=== PATIENT | female | born 1975 | race African-American/Black ===

== ENCOUNTER 2024-12-27 20:45 | Emergency (ER) | payer OTHER, SELFPAY ==
[2024-12-27 20:50] VITALS: BP 166/94
[2024-12-27 21:41] VITALS: BMI 28.6
[2024-12-27 21:43] VITALS: BP 159/94
[2024-12-27 22:00] VITALS: BP 162/88
[2024-12-27 22:12] LABS: Hematocrit 29.2 % (37.0-47.0); Hemoglobin 9.4 g/dL (12.0-16.0); Mean Corp Hgb Conc. 32.2 g/dL (33.0-37.0); Mean Corpuscular Volume 81.8 fL (81.0-99.0); Nucleated Red Blood Cells % 0 %; Platelet Count 387 10^3/uL (130-400); Red Cell Dist. Width 19.2 % (11.5-14.5); Urine Character Slightly Cloudy (Clear)
--- NOTE | 2024-12-27 22:23 | ED.GENMED ---
History of Present Illness
<Kev Moreira MD, Resident - Last Filed: 12/28/24 01:11>
General
Chief Complaint: Abnormal Lab Value
Source: patient
Time Seen by Provider: 12/27/24 22:09
History of Present Illness
History of Present Illness:
Mayte is a 49-year-old female with hypertension, anemia, and right ovarian cysts who presents with lower abdominal pain and 2 weeks of vaginal bleeding, now having nausea and dizziness. She went to the urgent care for workup and was sent here due
to low hemoglobin of 9.9. She states that she is perimenopausal and has been having ongoing on and off prolonged periods of vaginal bleeding for the past 1.5 years. She states that this episode is the worst, and that she feeling dizzy,
lightheaded, lethargic. She is bleeding through 1-2 pads per hour. She also reports having the shakes today as well as nausea. Of note, she stopped taking her norethindrone 3 times daily on Thursday as she thought she was having her period. She
follows with [facility] at [facility]. Today, she denies fevers, chills, vomiting, changes in diet, or any trauma to the abdomen or pelvis.
Review of Systems
<Kev Moreira MD, Resident - Last Filed: 12/28/24 01:11>
Review of Systems
Allergies reviewed?: No
All Other Systems: ROS reviewed and negative except as documented in HPI and ROS
ABD/GI: Reports abdominal pain, nausea and pain
: Reports bleeding
Neurological: Reports dizzy and weakness
Phy Exam
<Kev Moreira MD, Resident - Last Filed: 12/28/24 01:11>
General Physical Exam
General Presentation: well appearing and mild distress (Clutching lower abdomen in pain)
General Skin: warm and dry
General Habitus: normal
General Mental: alert
Cardiovascular Exam
Cardiovascular Exam: regular rate/rhythm and no edema
Pulmonary Exam
Pulmonary Exam: lungs clear and no respiratory distress
Gastrointestinal Exam
Gastrointestinal Exam: normal bowel sounds, soft, distended and tender (Mostly in the lower abdomen and right lower quadrant)
Neurological Exam
Neurological Exam: alert and oriented x3
Skin Exam
Skin Exam: normal color and warm/dry
Course
<Uswa MD Harish, Resident - Last Filed: 12/28/24 01:11>
Orders/Labs/Results
Orders:
Orders
12/27/24 22:00
Complete Blood Count/With Diff Urgent
Comprehensive Metabolic Panel Urgent
HCG, Serum Qualitative Screen Urgent
Comment: ADD ON
Urinalysis Reflex To Culture Urgent
Date Specimen was Collected: 12/27/24
Time Specimen was Collected: 21:59
Urine Microscopic Reflex Cult Urgent
12/27/24 22:54
US Pelvis Only (non-obstetric) Urgent
Comment:
Reason For Exam: AUB
12/27/24 22:56
Add On- LAB Urgent
Tests Added?: Qualitative HCG
12/27/24 23:39
Naproxen [Naprosyn] 500 mg PO NOW STA
12/27/24 23:40
Acetaminophen [Tylenol] 500 mg PO NOW STA
12/28/24 00:50
Tranexamic Acid [Cyklokapron] 1,300 mg PO NOW STA
12/28/24 00:57
Progesterone [Progesterone in Oil] 10 mg IM NOW STA
Abnormal Lab Results
12/27/24
22:00
RBC 3.57 L 10^6/uL
(4.20-5.40)
Hgb 9.4 L g/dL
(12.0-16.0)
Hct 29.2 L %
(37.0-47.0)
MCH 26.3 L pg
(27.0-31.0)
MCHC 32.2 L g/dL
(33.0-37.0)
RDW 19.2 H %
(11.5-14.5)
Absolute Neuts (auto) 7.1 H 10^3/uL
(1.4-6.5)
Absolute Monos (auto) 0.8 H 10^3/uL
(0.1-0.6)
Lymphocytes % 19.1 L %
(20.5-51.1)
Sodium 134 L mmol/L
(135-145)
Glucose 105 H mg/dl
(70-99)
Ur Occult Blood Reflex 4+ A
(Negative)
Urine RBC 80-90 A /HPF
(0-2)
Urine Bacteria (Reflex) Few A
(Negative)
Urine Albumin (Reflex) 2+ A
(Neg - Trace)
12/27/24 22:00
12/27/24 22:00
Vital Signs
Initial and Last Documented VS:
Initial Vital Signs
Temp Pulse Resp BP Pulse Ox
98.9 F 90 18 166/94 97
12/27/24 20:50 12/27/24 20:50 12/27/24 20:50 12/27/24 20:50 12/27/24 20:50
Last Documented Vital Signs
Temp Pulse Resp BP Pulse Ox
98.9 F 90 18 133/89 100
12/27/24 20:50 12/27/24 20:50 12/27/24 20:50 12/27/24 23:00 12/27/24 23:45
Jaidenlt;Isaac Aguilar, - Last Filed: 12/27/24 23:03>
Orders/Labs/Results
Orders:
Orders
12/27/24 22:00
Complete Blood Count/With Diff Urgent
Comprehensive Metabolic Panel Urgent
HCG, Serum Qualitative Screen Urgent
Comment: ADD ON
Urinalysis Reflex To Culture Urgent
Date Specimen was Collected: 12/27/24
Time Specimen was Collected: 21:59
Urine Microscopic Reflex Cult Urgent
12/27/24 22:54
US Pelvis Only (non-obstetric) Urgent
Comment:
Reason For Exam: AUB
12/27/24 22:56
Add On- LAB Urgent
Tests Added?: Qualitative HCG
12/27/24 23:39
Naproxen [Naprosyn] 500 mg PO NOW STA
12/27/24 23:40
Acetaminophen [Tylenol] 500 mg PO NOW STA
12/28/24 00:50
Tranexamic Acid [Cyklokapron] 1,300 mg PO NOW STA
12/28/24 00:57
Progesterone [Progesterone in Oil] 10 mg IM NOW STA
Abnormal Lab Results
12/27/24
22:00
RBC 3.57 L 10^6/uL
(4.20-5.40)
Hgb 9.4 L g/dL
(12.0-16.0)
Hct 29.2 L %
(37.0-47.0)
MCH 26.3 L pg
(27.0-31.0)
MCHC 32.2 L g/dL
(33.0-37.0)
RDW 19.2 H %
(11.5-14.5)
Absolute Neuts (auto) 7.1 H 10^3/uL
(1.4-6.5)
Absolute Monos (auto) 0.8 H 10^3/uL
(0.1-0.6)
Lymphocytes % 19.1 L %
(20.5-51.1)
Sodium 134 L mmol/L
(135-145)
Glucose 105 H mg/dl
(70-99)
Ur Occult Blood Reflex 4+ A
(Negative)
Urine RBC 80-90 A /HPF
(0-2)
Urine Bacteria (Reflex) Few A
(Negative)
Urine Albumin (Reflex) 2+ A
(Neg - Trace)
12/27/24 22:00
12/27/24 22:00
Vital Signs
Initial and Last Documented VS:
Initial Vital Signs
Temp Pulse Resp BP Pulse Ox
98.9 F 90 18 166/94 97
12/27/24 20:50 12/27/24 20:50 12/27/24 20:50 12/27/24 20:50 12/27/24 20:50
Last Documented Vital Signs
Temp Pulse Resp BP Pulse Ox
98.9 F 90 18 133/89 100
12/27/24 20:50 12/27/24 20:50 12/27/24 20:50 12/27/24 23:00 12/27/24 23:45
<Kev Moreira MD, Resident - Last Filed: 12/28/24 01:11>
MDM/Problems Addressed
Differential Diagnosis Includes:
Endometrial polyp
Perimenopausal bleeding
Progesterone withdrawal bleeding
Ovarian torsion
MDM/Problems Addressed:
Mayte is a 49-year-old female with hypertension, anemia, and right ovarian cysts who presents with lower abdominal pain and 2 weeks of vaginal bleeding, now having nausea and dizziness.
#Abnormal vaginal bleeding
#Lower abdominal pain
#Nausea and dizziness
She was sent here with hemoglobin 9.9 from urgent care. In the ED hemoglobin is 9.4. She is not having any nausea nor dizziness currently, however is having lower abdominal cramping and pain.
- Electrolytes within normal range
- UA pertinent for 80-90 urine RBC
- Follow-up transvaginal ultrasound
--Spoke w/ [facility] at [facility] to see if one-time dose of progesterone is ok, patient had endometrial biopsy in September 2024 that was unremarkable
--Okay for one-time dose of IM progesterone 0.2mg in ED & TXA 1300mg once now
- Home with TXA 1300 mg TID x 5 days
- Follow-up [facility]
<Kev Moreira MD, Resident - Last Filed: 12/28/24 01:11>
*Pulse Oximetry
SaO2: 100
Oxygen Mode of Delivery: Room air
Patient hypoxic: no
*Critical Care Note
Total Time (30-74mins, 75-104mins- exclusive of procedures): Not Applicable
<Kev Moreira MD, Resident - Last Filed: 12/28/24 01:11>
Update Note
Update Note:
I spoke to resident via [facility] resident hotline to inquire about her previous medical records and risk for endometrial cancer. Resident notified me that Mayet had an endometrial biopsy in September 2024 that showed 1 polyp but otherwise was
unremarkable. She also confirmed that Mayte has been on progesterone OCP and tolerated it well. I confirmed with her our plan to give progesterone dose, given unremarkable transvaginal ultrasound, and discharged her on TXA 1300 mg for 5 days with
[facility] follow-up. She encouraged me to let Mayte know to call the office tomorrow to move her 01/12 appointment to an earlier date. I relayed this to Mayte.
ED Attending Note
<Kev Moreira MD, Resident - Last Filed: 12/28/24 01:11>
-
Portions of this chart may have been created with voice recognition software.� Occasional wrong word or��sound alike� substitutions may have occurred due to the inherent limitations of voice recognition software.
<Isaac Aguilar DO - Last Filed: 12/27/24 23:03>
ED Attending Note
Patient seen and examined by attending physician: Yes
I performed a history and physical exam of patient and discussed management with resident, I reviewed resident's note and agree with documented findings and plan of care.: Yes
ED Attending Note:
I agree with Dr. Moreira's note.
Patient presents with pelvic pain, heavy vaginal bleeding. Patient has a history of dysfunctional uterine bleeding. She had a D&C and a myomectomy for this in 2022. She has been bleeding heavily for several days now. She is using about a pad or
2 an hour at times. She has been feeling dizzy and lightheaded presumably from the bleeding. She was sent here from an urgent care.
General: Awake, Alert, Oriented X3. No acute distress.
Vitals: unremarkable
Head: Atraumatic
Eyes: Pupils equal, EOMI
Throat: Airway intact, no exudates
Abd: Soft, mild suprapubic and pelvic tenderness to palpation, No pulsatile mass
Neuro: Nonfocal
Skin: Warm, dry, no rash
Extremities: pulses equal b/l, no edema
Patient presents with dysfunctional uterine bleeding. She has a relationship with a preparation room worker at [facility]. She has an appointment on January 12 actually for them.
Will obtain a pelvic ultrasound and try to contact her preparation room worker on-call to discuss progesterone versus TXA alone.
Discharge Plan
Departure
Patient Disposition: Home (Routine Discharge)
Date of Disposition: 12/28/24
Time of Disposition: 00:58
Patient with high blood pressure during this ER visit?: No
Condition: Good
Discharge Problem:
Abnormal vaginal bleeding, Hemoglobin low
Prescriptions:
New
tranexamic acid 650 mg tablet
1,300 mg PO TID 5 Days Qty: 30 0RF
Activity Restrictions/Additional Instructions:
Take tranexamic acid as prescribed for 5 days. This should help slow/stop your bleeding.
Continue Midol and Tylenol as needed for pain.
Call in the morning to schedule an appointment with your [facility]. I understand that you have an appointment for 01/12, however at let them know that you were in the ED for vaginal bleeding, low hemoglobin, and stopped taking your northenidrone on
Thursday. They should be able to move your 01/12 appointment to an earlier date/time. It is imperative that you follow-up with them.
Interventions
Interventions:
*Risk Screen - Suicide Last Done: 12/27/24 20:50
*General Assessment Last Done: 12/27/24 21:41
*Neglect/Abuse Screening Last Done: 12/27/24 21:41
*ED- Fall Risk Assessment Last Done: 12/27/24 21:41
*ED COVID-19 Vaccine History Last Done: 12/27/24 21:41
Discharge Date and Time
Print Language: WOLOF
[2024-12-27 22:33] LABS: Urine Red Blood Cell 80-90 /HPF (0-2); Urine White Cell 0-2 /HPF (0-5)
[2024-12-27 22:42] LABS: ALT (SGPT) 31 U/L (0-35); AST (SGOT) 24 U/L (14-36); Albumin 3.7 g/dl (3.5-5.0); Alkaline Phosphatase 65 U/L (38-126); Blood Urea Nitrogen 9 mg/dl (7-17); Calcium 8.6 mg/dl (8.4-10.2); Carbon Dioxide 23 mmol/L (22-30); Estimated Creatinine Clearance 89 ml/min; Glucose 105 mg/dl (70-99); Total Protein 6.5 g/dl (6.3-8.2); eGFR > 60.00
[2024-12-27 22:45] LABS: Chloride 106 mmol/L (98-107); Potassium 4.3 mmol/L (3.5-5.1); Sodium 134 mmol/L (135-145)
[2024-12-27 23:00] VITALS: BP 133/89
[2024-12-27 23:41] LABS: HCG, Serum Qualitative Screen Negative
[2024-12-28] MEDS: NAPROSYN 500 MG PO (00:14)
[2024-12-28] MEDS: TYLENOL 500 MG PO (00:14)
[2024-12-28] MEDS: CYKLOKAPRON 1300 MG PO (01:00)
[2024-12-28] MEDS: [UNRECOGNIZED DRUG - OTHER] 10 MG IM (01:20)
== END 2024-12-28 01:40 | disposition home or self-care (01) ==
LOC: EMR 20:45
PROVIDERS: Emergency Medicine; EMERGENCY PHYSICIAN Emergency Medicine
DX: N93.9 Abnormal uterine and vaginal bleeding, unspecified (principal); D64.9 Anemia, unspecified; I10 Essential (primary) hypertension
CPT/HCPCS: 96372; 99284; 76856; 80053; 81003; 81015; 84703; 85025